=== PATIENT | female | born 1990 | race Caucasian/White ===

== ENCOUNTER 2019-06-05 08:42 | Emergency (ER) | payer OTHER, SELFPAY ==
--- NOTE | ~2019-06-05 | US_ITS ---
EXAMINATION: US OB <=14 wk fetus w TV DATE: 06/05/2019 10:13 INDICATION: Vaginal bleeding in first trimester of . TECHNIQUE: Real-time transabdominal and transvaginal pelvic ultrasound was performed. COMPARISON: None. FINDINGS: TRANSABDOMINAL ULTRASOUND: The uterus measures 7.7 x 4.0 x 2.4 cm. TRANSVAGINAL ULTRASOUND: There is no visible intrauterine gestational sac. The endometrial complex me asures 5 mm in thickness. The right ovary measures 2.2 x 1.6 x 1.1 cm. The left ovary measures 1.1 x 1.9 x 1.9 cm. There is normal vascular flow in the ovaries. There is no free fluid in the pelvis. IMPRESSION: 1. No visible intrauterine gestational sac, which may be normal in early . Spontaneous abor tion and ectopic are not excluded. Serial beta-hCGs are recommended. Reviewed, dictated and finalized at location [facility]. [facility] IMPRESSION: 1. No visible intrauterine gestational sac, which may be normal in early pregn asif. Spontaneous and ectopic are not excluded. Serial beta- hCGs are recommended.
[2019-06-05 08:47] VITALS: BP 135/96; PULSE 84; RESP 20; TEMP 36.8; O2SAT 99
--- NOTE | 2019-06-05 09:43 | ED.FEMALEGU ---
HPI - Female Genitourinary General Chief complaint: Urogenital-Female Stated complaint: Vag bleed - 5 wks preg Time Seen by Provider: 06/05/19 08:44 Source: patient Mode of arrival: ambulatory Limitations: no limitations History of Present Illness HPI Narrative: Patient presents with chief complaint of persistently increasing vaginal bleeding that began on Monday. Patient states that she has been attempting to get . Patient states that her last menstrual. Was April 28 and she had 2 positive test in May. Patient states that she was due to see L[facility] RAIL TRAIN OPERATOR at [place] at the end of this week. Patient has not had confirm any uterine . Patient states she is also noticed occasional cramping located to her right pelvis. Patient denies pain or discomfort at this time. Patient states her blood flow on Monday started as spotting however her bleeding today looks like a menstrual cycle bleeding. Patient states she has been wearing a panty liner and has only had to change it once today. Patient denies weakness, dizziness, vomiting, urinary symptoms, flank pain, fever, chills. Patient denies any prior pregnancies. Patient denies any past medical history or daily medications other than a vitamin. Patient denies smoking, recreational drug use, alcohol use. Related Data Home Medications Medication Instructions Recorded Confirmed PNV cmb#95-ferrous fumarate-FA 1 tablet PO DAILY 06/05/19 [] Allergies Allergy/AdvReac Type Severity Reaction Status Date / Time No Known Allergies Allergy Verified 06/05/19 08:50 Review of Systems Review of Systems: Narrative: CONSTITUTIONAL: Denies fever, chills, or sweats. EYES: Denies visual changes, redness, or discharge. ENT: Denies rhinorrhea, congestion, sore throat, or otalgia. CARDIOVASCULAR: Denies chest pain, palpitations, or edema. RESPIRATORY: Denies cough or dyspnea. GASTROINTESTINAL: Reports occasional right-sided pelvic cramping denies abdominal pain, nausea, vomiting, or diarrhea. GENITOURINARY: Reports vaginal bleeding. Denies dysuria SKIN: Denies rash or itching. MUSCULOSKELETAL: Denies back pain, joint pain, or myalgia. NEUROLOGIC: Denies headache, numbness, dizziness, or weakness. PSYCHIATRIC: Denies anxiety or depression. Exam Narrative: Exam Narrative: GENERAL: Well-appearing, well-nourished, and in no acute distress. HEAD: Normocephalic, atraumatic. EYES: PERRLA and EOMI. ENT: Nares clear, no rhinorrhea or epistaxis. Mucous membranes moist. Oropharynx without tonsillar hypertrophy exudate or other lesions. Bilateral TMs pearly ramirez nonbulging NECK: Supple. No adenopathy or masses. No carotid bruits or JVD CHEST: Clear to auscultation. No respiratory distress. No wheezes rales or rhonchi HEART: Regular rate and rhythm. No murmur heard. Normal peripheral pulses. ABDOMEN: Soft, nontender, nondistended, normal active bowel sounds. No CVA tenderness EXTREMITIES: Normal range of motion. No edema. SKIN: Warm, dry, no rash. NEURO: No focal deficits. Alert and oriented x3. PSYCH: Normal mood and affect. Course Vital Signs Vital signs: Vital Signs Temperature 98.2 F 06/05/19 08:47 Pulse Rate 84 06/05/19 08:47 Respiratory Rate 20 06/05/19 08:47 Blood Pressure 135/96 H 06/05/19 08:47 Pulse Oximetry 99 06/05/19 08:47 Temperature 98.2 F 06/05/19 08:47 Pulse Rate 68 06/05/19 12:00 Respiratory Rate 16 06/05/19 12:00 Blood Pressure 118/79 06/05/19 12:00 Pulse Oximetry 99 06/05/19 12:00 MDM - Female Genitourinary MDM Narrative Medical decision making narrative: Patient does not have any profuse vaginal bleeding. Patient beta-hCG is very low under 50 suggesting patient is not . There are no signs of ectopic or abnormal findings on pelvic ultrasound. Patient instructed to follow-up with her L[facility] RAIL TRAIN OPERATOR for further evaluation and possible repeat beta-hCG testing. Patient is blood type is
[2019-06-05 10:29] LABS: Add Urine Microscopic? YES; Appearance Urine Cloudy (Clear); Bacteria Urine Trace /hpf; Bilirubin Urine Negative (Negative); Blood Urine 3+ (Negative); Glucose Urine UA Negative (Negative); Ketones Urine Negative (Negative); Leukocyte Esterase Ur Trace LEU/UL (Negative); Mucus Urine Rare /lpf; Nitrate Urine Negative (Negative); Protein Urine 1+ mg/dL (Negative); RBC Urine >75 /hpf (0-2); Specific Grav Ur 1.011 (1.001-1.035); Squamous Epithelial Cell Urine Few /hpf (Few); Urobilinogen Urine Negative mg/dL (<2.0)
[2019-06-05 10:30] LABS: Color Urine Light Red (Yellow)
[2019-06-05 10:48] LABS: Beta HCG Quantitative 9.63 mIU/ML
[2019-06-05 12:00] VITALS: BP 118/79; PULSE 68; RESP 16; O2SAT 99
== END 2019-06-05 12:00 | disposition home or self-care (01) ==
PROVIDERS: Physician Assistant; Emergency Provider Emergency Medicine; PCP Family Medicine
DX: N93.9 Abnormal uterine and vaginal bleeding, unspecified (principal)
CPT/HCPCS: 36415; 76801; 76817; 81001; 81025; 84702; 86850; 86900; 86901; 87086; 87088; 99284